=== PATIENT | male | born 1980 | race Caucasian/White ===

== ENCOUNTER 2016-07-09 16:28 | Emergency (ER) | payer OTHER ==
[2016-07-09 16:36] VITALS: BP 118/66; PULSE 68; TEMP 98.1; BMI 27.8
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
== END 2016-07-09 17:40 | disposition home or self-care (01) ==
LOC: JERFT 16:28
DX: M54.5 Low back pain (principal); V49.49XA Driver injured in collision with other motor vehicles in traffic accident, initial encounter; Y92.414 Local residential or business street as the place of occurrence of the external cause; Y93.89 Activity, other specified; Y99.9 Unspecified external cause status
CPT/HCPCS: 99281-25